=== PATIENT | female | born 1935 | race Caucasian/White ===

== ENCOUNTER → 2016-05-14 | Outpatient (CLI) | payer MEDICARE ==
[2015-03-10 12:30] VITALS: BP 167/81
[~2016-05-14] MED LIST: AMLO5TAB4 PO; ASPI325T4 PO; CLOP75TA27 PO; LISI-334 PO; METF10002 PO; MOXI3DRO2 RIGHTEYE; MULT1TAB52 PO; NEPA1.7D RIGHTEYE; PRED5DRO6 RIGHTEYE; PROP40TA PO; TRAM50TA PO
--- NOTE | 2016-05-14 12:31 | RAD ---
DATE: 05/14/2016 EXAM: DIGITAL SCREEN BILAT W/CAD HISTORY: Screening. Note is made of the family history for breast malignancy COMPARISON: One year ago This study was interpreted with the benefit of Computerized Aided Detection (CAD). FINDINGS: The breast parenchyma shows scattered fibroglandular densities. Breast parenchyma level B. There is been little change in the appearance of the breasts compared to the previous exam IMPRESSION: Benign findings BI-RADS CATEGORY: 2 BENIGN FINDING(S) RECOMMENDED FOLLOW-UP: 12M 12 MONTH FOLLOW-UP PQRS compliance statement: Patient information was entered into a reminder system with a target due date 05/14/2017 for the next mammogram. Mammography is a sensitive method for finding small breast cancers, but it does not detect them all and is not a substitute for careful clinical examination. A negative mammogram does not negate a clinically suspicious finding and should not result in delay in biopsying a clinically suspicious abnormality. "Our facility is accredited by the [employer] Mammography Program."
== END | disposition home or self-care (01) ==
LOC: MAMMO 09:28
PROVIDERS: ATTEND Family Medicine
DX: Z12.31 Encounter for screening mammogram for malignant neoplasm of breast (principal)
CPT/HCPCS: G0202; 77067